=== PATIENT | female | born 1975 | race Caucasian/White ===

== ENCOUNTER 2024-09-21 03:30 | Inpatient (IN) | payer OTHER, MEDICARE ==
[2024-09-21] MEDS: ONDANSETRON 4 MG/2 ML VIAL IVP STA ×3 (04:08→07:48)
[2024-09-21] MEDS: SODIUM CHLORIDE 0.9% 500 ML 500 ML IV STA ×2 (04:11→05:01)
[2024-09-21] MEDS: KETOROLAC 15 MG/ML 1 ML VIAL IVP STA (04:14)
[2024-09-21 04:34] LABS: Basophils # (A) 0.08 10*3/uL (0.00-0.10); Basophils % (A) 0.3 %; Eosinophils # (A) 0.02 10*3/uL (0.04-0.35); Eosinophils % (A) 0.1 %; HCT 41.9 % (37.2-46.3); HGB 14.8 g/dL (12.0-15.0); Lymphocytes # (A) 4.28 10*3/uL (0.90-5.00); MCH 32.4 pg (27.0-32.0); MCHC 35.3 g/dL (32.0-37.0); MCV 91.7 fL (80.0-97.0); Mean Platelet Volume 9.3 fL (9.5-12.2); Monocytes % (A) 3.9 %; Neutrophils # (A) 24.67 10*3/uL (1.80-7.70); Neutrophils % (A) 80.3 %; Platelet Count 518 10*3/uL (140-440); RBC 4.57 10*6/uL (4.10-5.20); RDW 13.1 % (11.5-14.5); WBC 30.67 10*3/uL (4.50-10.00)
[2024-09-21 04:48] LABS: AST 43 U/L (14-36); African American GFR (CKD) >90 (>60 ml/min/1.73 sqM); Alkaline Phosphatase 103 U/L (38-126); Amylase 125 U/L (30-110); Anion Gap 21 mmol/L; Blood Urea Nitrogen 11 mg/dL (7-17); Calcium 10.5 mg/dL (8.4-10.2); Carbon Dioxide 17 mmol/L (22-30); Chloride 100 mmol/L (98-107); Glucose 206 mg/dL (74-99); Lipase 616 U/L (23-300); Non-African American GFR(CKD) >90 (>60 ml/min/1.73 sqM); Potassium 3.9 mmol/L (3.5-5.1); Sodium 138 mmol/L (137-145); Total Bilirubin 1.2 mg/dL (0.2-1.3); Total Protein 8.3 g/dL (6.3-8.2)
[2024-09-21 04:55] LABS: ALT 61 U/L (4-34)
--- NOTE | 2024-09-21 07:17 | ED ---
Nausea/Vomiting/Diarrhea HPI - General Chief complaint: Nausea/Vomiting/Diarrhea Stated complaint: Vomiting Time Seen by Provider: 09/21/24 03:57 Source: patient, EMS Mode of arrival: EMS Limitations: no limitations - History of Present Illness Initial comments: This patient is a 49-year-old woman presenting with complaint of multiple episodes of vomiting, diarrhea, abdominal cramping. Symptoms had started over the course of last night and become severe. The patient does have underlying history of POTS syndrome, autonomic dysregulation, lupus, her care is usually provided by [facility]. She does have history of GE J-tube, and takes lactated ringer solution 1 L 3 times weekly to prevent dehydration. The patient's had had similar symptoms over the weekend, and then she developed symptoms last night. She states she has had over 30 episodes of vomiting, no hematemesis or coffee-ground material. Does have some diffuse in termittent, abdominal cramping. She has felt hot and cold and has had some diaphoresis. MD complaint: nausea, vomiting, diarrhea, abdominal pain -: hour(s) Description of Vomiting: bilious Description of Diarrhea: water Associated Abdominal Pain: Yes Location: diffuse Severity: mild Quality: cramping Consistency: intermittent Improves with: none Worsens with: none Context: sick contacts Associated Symptoms: diaphoresis, fever/chills, nausea/vomiting - Related Data Home Medications Medication Instructions Recorded Confirmed Albuterol Sulfate [Albuterol 2 puff INHALATION RT-Q6H PRN 09/21/24 09/21/24 Sulfate Hfa] Aspirin EC [Ecotrin Low Dose] 81 mg PO DAILY 09/21/24 09/21/24 Cromolyn Sodium [Cromolyn Sodium 100 mg PO TID 09/21/24 09/21/24 20% Oral Soln] Cyclobenzaprine [Flexeril] 5 mg PO BID PRN 09/21/24 09/21/24 Dicyclomine [Bentyl] 10 mg PO TID PRN 09/21/24 09/21/24 Escitalopram Oxalate [Lexapro Soln] 5 mg PO HS 09/21/24 09/21/24 Famotidine [Pepcid] 40 mg PO DAILY 09/21/24 09/21/24 Fexofenadine HCl [Little Allergy] 180 mg PO DAILY 09/21/24 09/21/24 Fludrocortisone [Florinef] 0.1 mg PO DAILY 09/21/24 09/21/24 Lubiprostone [Amitiza] 8 mcg PO DAILY 09/21/24 09/21/24 Midodrine [ProAmatine] 5 mg PO TID PRN 09/21/24 09/21/24 Promethazine 6.25MG/5Ml [Phenergan 12.5 mg PO TID PRN 09/21/24 09/21/24 Syrup] Propranolol [Inderal] 10 mg PO HS 09/21/24 09/21/24 Prucalopride Succinate [Motegrity] 2 mg PO DAILY 09/21/24 09/21/24 Rimegepant Sulfate [Nurtec Odt] 75 mg PO DAILY PRN 09/21/24 09/21/24 Previous Rx's Medication Instructions Recorded Acetaminophen Tab [Tylenol Tab] 650 mg PO Q4H PRN #30 tablet 09/24/24 Levofloxacin [Levaquin] 500 mg PO DAILY 3 Days #3 tab 09/24/24 Allergies Allergy/AdvReac Type Severity Reaction Status Date / Time cefotaxime [From Claforan] Allergy Unknown Verified 09/21/24 03:41 hydrocodone Allergy Unknown Verified 09/21/24 03:41 loracarbef [From Lorabid] Allergy Rash/Hives Verified 09/21/24 15:52 Penicillins Allergy Unknown Verified 09/21/24 03:41 tramadol [From Ultram] Allergy Rash/Hives Verified 09/21/24 15:52 trazodone [From Desyrel] Allergy Unknown Verified 09/21/24 03:41 Review of Systems ROS Statement: Those systems with pertinent positive or pertinent negative responses have been documented in the HPI. ROS Other: All systems not noted in ROS Statement are negative. Constitutional: Reports: chills, weakness Respiratory: Denies: cough, dyspnea Cardiovascular: Denies: chest pain, palpitations, edema, syncope Gastrointestinal: Reports: abdominal pain, nausea, vomiting, diarrhea. Denies: hematemesis, melena, hematochezia Genitourinary: Denies: dysuria, hematuria Musculoskeletal: Denies: back pain Skin: Denies: rash Neurological: Denies: headache, weakness Past Medical History Additional Past Medical History / Comment(s): POTS, temperature regulating disorder General Exam Limitations: no limitations General appearance: alert, in no apparent distress Head exam: Present: atraumatic, normocephalic Eye exam: Present: normal appearance. Absent: scleral icterus, conjunctival injection ENT exam: Present: normal oropharynx Neck exam: Present: normal inspection Respiratory exam: Absent: respiratory distress, wheezes, rales, rhonchi, stridor, accessory muscle use Cardiovascular Exam: Present: regular rate, normal rhythm, normal heart sounds. Absent: systolic murmur, diastolic murmur, rubs, gallop GI/Abdominal exam: Present: soft. Absent: distended, tenderness, guarding, rebound, rigid, mass Extremities exam: Present: normal inspection, normal capillary refill. Absent: pedal edema, calf tenderness Back exam: Present: normal inspection. Absent: CVA tenderness (R), CVA tenderness (L) Neurological exam: Present: alert Skin exam: Present: warm, dry, intact, normal color. Absent: rash Course Vital Signs 09/21/24 09/21/24 09/21/24 03:34 06:00 06:39 Temperature 98.6 F Pulse Rate 88 89 Respiratory 18 18 Rate Blood Pressure 129/98 121/78 O2 Sat by Pulse 99 97 Oximetry 09/21/24 09/21/24 09/21/24 07:22 14:33 18:28 Temperature Pulse Rate 97 128 H 121 H Respiratory 18 18 18 Rate Blood Pressure 127/77 137/83 111/73 O2 Sat by Pulse 97 96 97 Oximetry 09/21/24 09/21/24 09/21/24 19:30 21:02 22:42 Temperature 99.4 F 99.2 F Pulse Rate 122 H 102 H 96 Respiratory 18 18 18 Rate Blood Pressure 115/75 115/75 120/80 O2 Sat by Pulse 96 95 96 Oximetry 09/22/24 00:07 Temperature 100.0 F H Pulse Rate 89 Respiratory 18 Rate Blood Pressure 120/79 O2 Sat by Pulse 95 Oximetry Medical Decision Making - Medical Decision Making The patient had CT scan of the abdomen and pelvis that I interpreted as being negative for free air, obstruction, or acute surgical condition. There is a large gallstone in the gallbladder. Was pt. sent in by a medical professional or institution (, PA, COLLISION TECHNICIAN, urgent care, hospital, or shelter...) When possible be specific @ -[No] Did you speak to anyone other than the patient for history (EMS, parent, family, police, friend...)? What history was obtained from this source @ -[Patient's contributed to history Did you review nursing and triage notes (agree or disagree)? Why? @ -[I reviewed and agree with nursing and triage notes] Were old charts reviewed (outside hosp., previous admission, EMS record, old EKG, old radiological studies, urgent care reports/EKG's, shelter records)? Report findings @ -[No old charts were reviewed] Differential Diagnosis (chest pain, altered mental status, abdominal pain women, abdominal pain men, vaginal bleeding, weakness, fever, dyspnea, syncope, headache, dizziness, GI bleed, back pain, seizure, CVA, palpatations, mental health, musculoskeletal)? @ -[Differential Abdominal Pain Women: Appendicitis, Cholecystitis, diverticulosis, ischemic bowel, pancreatitis, hepatitis, UTI, gastroenteritis, AAA, incarcerated hernia, bowel obstruction, constipation, inflammatory bowel, hepatitis, peptic ulcer disease, splenic infarction, perforated viscus, vulvitis, ovarian torsion, PID, kidney stone, placenta abruption, this is not meant to be an all-inclusive list EKG interpreted by me (3pts min.). @ -[As above] X-rays interpreted by me (1pt min.). @ -[None done] CT interpreted by me (1pt min.). @ -[I interpreted as above U/S interpreted by me (1pt. min.). @ -[None done] What testing was considered but not performed or refused? (CT, X-rays, U/S, labs)? Why? @ -[None] What meds were considered but not given or refused? Why? @ -[None] Did you discuss the management of the patient with other professionals (professionals i.e. ., PA, COLLISION TECHNICIAN, lab, RT, psych nurse, social science teacher, supervisory cbp officer, teacher, corporate ethics officer, showcase trimmer)? Give summary @ -[No] Was smoking cessation discussed for >3mins.? @ -[No] Was critical care preformed (if so, how long)? @ -[No] Were there social determinants of health that impacted care today? How? (Homelessness, low income, unemployed, alcoholism, drug addiction, transportation, low edu. Level, literacy, decrease access to med. care, alf, rehab)? @ -[No] Was there de-escalation of care discussed even if they declined (Discuss DNR or withdrawal of care, Hospice)? DNR status @ -[No] What co-morbidities impacted this encounter? (DM, HTN, Smoking, COPD, CAD, Cancer, CVA, ARF, Chemo, Hep., AIDS, mental health diagnosis, sleep apnea, morbid obesity)? @ -[Sjogren syndrome, Javid-Danlos, lupus, long COVID Was patient admitted / discharged? Hospital course, mention meds given and route, prescriptions, significant lab abnormalities, going to OR and other pertinent info. @ -[Patient is 49-year-old woman with multiple medical conditions who is having nausea vomiting some abdominal pain and not tolerating oral intake. The patient will be admitted for further symptom control and also to have surgical consultation. Undiagnosed new problem with uncertain prognosis? @ -[No] Drug Therapy requiring intensive monitoring for toxicity (Heparin, Nitro, Insulin, Cardizem)? @ -[No] Were any procedures done? @ -[No] Diagnosis/symptom? @ -[Intractable nausea and vomiting Acute abdominal pain Acute, or Chronic, or Acute on Chronic? @ -[Acute Uncomplicated (without systemic symptoms) or Complicated (systemic symptoms)? @ -[Uncomplicated Side effects of treatment? @ -[No] Exacerbation, Progression, or Severe Exacerbation? @ -[No] Poses a threat to life or bodily function? How? (Chest pain, USA, PR, pneumonia, PE, COPD, DKA, ARF, appy, cholecystitis, CVA, Diverticulitis, Homicidal, Suicidal, threat to staff... and all critical care pts) @ -[Given the patient's underlying medical condition there is risk of dehydration/organ failure with her protracted vomiting and inability to take fluids All treatments are based on ideal body weight as in ED triage - Lab Data Result diagrams: 09/24/24 05:35 09/24/24 05:35 Lab Results 09/21/24 09/21/24 Range/Units 04:28 04:28 WBC 30.67 H (4.50-10.00) 10*3/uL RBC 4.57 (4.10-5.20) 10*6/uL Hgb 14.8 (12.0-15.0) g/dL Hct 41.9 (37.2-46.3) % MCV 91.7 (80.0-97.0) fL MCH 32.4 H (27.0-32.0) pg MCHC 35.3 (32.0-37.0) g/dL Plt Count 518 H (140-440) 10*3/uL MPV 9.3 L (9.5-12.2) fL Immature Gran % (Auto) 1.4 % Neutrophils % 80.3 % Lymphocytes % 14.0 % Monocytes % 3.9 % Eosinophils % 0.1 % Basophils % 0.3 % Immature Gran # 0.42 H (0.00-0.04) 10*3/uL Neutrophils # 24.67 H (1.80-7.70) 10*3/uL Lymphocytes # 4.28 (0.90-5.00) 10*3/uL Monocytes # 1.20 H (0.20-1.00) 10*3/uL Eosinophils # 0.02 L (0.04-0.35) 10*3/uL Basophils # 0.08 (0.00-0.10) 10*3/uL Sodium 138 (137-145) mmol/L Potassium 3.9 (3.5-5.1) mmol/L Chloride 100 (98-107) mmol/L Carbon Dioxide 17 L (22-30) mmol/L Anion Gap 21 mmol/L BUN 11 (7-17) mg/dL Creatinine 0.54 (0.52-1.04) mg/dL Est GFR (CKD-EPI)AfAm >90 (>60 ml/min/1.73 sqM) Est GFR (CKD-EPI)NonAf >90 (>60 ml/min/1.73 sqM) Glucose 206 H (74-99) mg/dL Calcium 10.5 H (8.4-10.2) mg/dL Total Bilirubin 1.2 (0.2-1.3) mg/dL AST 43 H (14-36) U/L ALT 61 H (4-34) U/L Alkaline Phosphatase 103 (38-126) U/L Total Protein 8.3 H (6.3-8.2) g/dL Albumin 5.0 (3.5-5.0) g/dL Amylase 125 H (30-110) U/L Lipase 616 H (23-300) U/L Disposition Clinical Impression: Gastroenteritis, Intractable nausea and vomiting, Abdominal pain Disposition: ADMITTED IP TO THIS HOSP Condition: Stable Is patient prescribed a controlled substance at d/c from ED?: No
--- NOTE | 2024-09-21 08:37 | CT ---
EXAMINATION TYPE: CT abdomen pelvis w con DATE OF EXAM: 09/21/2024 8:13 AM COMPARISON: None. CLINICAL INDICATION: Female, 49 years old with history of abdominal pain; nausea/vomiting TECHNIQUE: Axial CT abdomen pelvis w con;Sagittal and coronal reformats were created on a separate w orkstation. Contrast used:100 mL of Isovue 300 with IV Contrast, (none if empty) Oral contrast used: without Oral Contrast (none if empty) CT DLP: 1127.6 mGycm, Automated exposure control for dose reduction was used. FINDINGS: LOWER CHEST: Unremarkable ABDOMEN LIVER: Unremarkable GALLBLADDER AND BILE DUCTS: 8 mm gallstone. No abnormal gallbladder distention. No biliary ductal dil atation. PANCREAS: Unremarkable. SPLEEN: Surgically absent with surgical clips within the left upper quadrant. ADRENAL GLANDS: Unremarkable. KIDNEYS AND URETERS: No evidence of hydronephrosis or renal calculus. The ureters are unremarkable. PELVIS BLADDER: No evidence for wall thickening or mass given limitations of exam. REPRODUCTIVE: Uterus anteverted. An IUD appears appropriately positioned. There is a 2.7 cm enhancing rounded mass in the posterior uterine body myometrium suggesting a focal fibroid. Multiple pelvic ph leboliths. Ovaries not well delineated. Soft tissue fullness in the region of the cervix, refer to ax ial image 85 may be normal physiologic change. ABDOMEN & PELVIS STOMACH AND BOWEL: There appear to be 2 gastric tubes present coursing down the esophagus, one with t ip just below the GE junction and one with tip within the fundus of the stomach. A PEG tube is also p resent.Prominent liquid stool within the right side of the colon. Additional prominent fluid-filled s mall bowel loops in the left side of the abdomen and within the ileum. Possible mild ileal wall thick ening and mucosal hyperemia. No evidence of bowel obstruction. Normal appendix. PERITONEUM/RETROPERITONEUM: No evidence of pneumoperitoneum or free fluid. VASCULATURE: No evidence of aortic aneurysm. MUSCULOSKELETAL: No acute osseous abnormalities LYMPH NODES: A couple prominent matthew hepatic lymph nodes measuring up to 1 cm probably reactive. No further evidence for mesenteric or retroperitoneal adenopathy. No pelvic adenopathy seen. SOFT TISSUE/ABDOMINAL WALL: Unremarkable IMPRESSION: 1. Prominent liquid stool in the right side of the colon as well as fluid-filled small bowel loops i n the left side of the abdomen and in the ileum. Consider a nonspecific enteritis or enterocolitis. 2. We note a PEG tube in place. There also appear to be 2 NG tubes one with tip just below the GE ashia ction and one with tip in the gastric fundus. Clinically correlate. 3. 8 mm gallstone. 4. IUD present. Soft tissue fullness in the region of the cervix may be physiologic change. Correlate with findings on routine Pap smear to exclude any underlying lesion. [facility], Workstation: MJ, 09/21/2024 8:35 AM
[2024-09-21] MEDS ORDERED: NALOXONE 0.4 MG/ML 1 ML VIAL IV PRN (08:41)
[2024-09-21] MEDS: SODIUM CHLORIDE 0.9% 1,000 ML IV SCH (08:56)
[2024-09-21] MEDS ORDERED: MIDODRINE 5 MG TAB PO PRN (13:02)
[2024-09-21] MEDS ORDERED: DICYCLOMINE 10 MG CAP PO PRN (13:02)
[2024-09-21] MEDS ORDERED: PATIENT'S OWN (Rimegepant Sulfate [Nurtec Odt] 75 MG Tablet) PO PRN (13:02)
[2024-09-21] MEDS ORDERED: CYCLOBENZAPRINE 5 MG TAB PO PRN (13:02)
[2024-09-21] MEDS ORDERED: ALBUTEROL NEBULIZED 2.5 MG/3 ML INHALATION PRN (13:02)
[2024-09-21] MEDS ORDERED: traMADol 50 MG TAB PO PRN (13:08)
[2024-09-21] MEDS: FAMOTIDINE 20 MG TAB PO SCH (13:42)
[2024-09-21] MEDS: TRIMETHOBENZAMIDE 100 MG/ML 2 ML VIAL IM STA (13:42)
[2024-09-21] MEDS: PRUCALOPRIDE SUCCINATE 1 MG PO SCH (13:43)
[2024-09-21] MEDS: PANTOPRAZOLE 40 MG/10 ML VIAL IVP SCH (13:43)
[2024-09-21] MEDS: LUBIPROSTONE 8 MCG PO SCH (13:43)
[2024-09-21] MEDS: LORATADINE 10 MG TAB PO SCH (13:43)
[2024-09-21] MEDS: FLUDROCORTISONE 0.1 MG TAB PO SCH (13:43)
[2024-09-21] MEDS: HYDROmorphone 0.5 MG/0.5 ML SYRINGE IVP PRN (14:28)
--- NOTE | 2024-09-21 14:49 | US ---
EXAMINATION TYPE: US gallbladder DATE OF EXAM: 09/21/2024 COMPARISON: CT 2024 CLINICAL INDICATION: Female, 49 years old with history of abd pain, gallstones?; TECHNIQUE: Grayscale and color Doppler imaging of the right upper quadrant was performed. FINDINGS: EXAM MEASUREMENTS: Liver Length: 17.6 cm Gallbladder Wall: 0.2 cm CBD: 0.5 cm Right Kidney: 11.3 x 4.2 x 4.7 cm Pancreas: Some of the pancreatic tail is obscured by bowel gas shadowing. Visualized portions show n o gross abnormality. Liver: measures in upper limits of normal. Increased echogenicity. No focal lesion seen. Gallbladder: wnl Evidence for sonographic Powell's sign: yes CBD: visualized portions wnl, limited by overlying bowel gas Right Kidney: wnl IMPRESSION: 1. Borderline hepatomegaly at 17.6 cm with mild to moderate hepatic steatosis. Correlate with LFTs, l ipid profile, and patient risk factors. 2. No gallstones or biliary ductal dilatation. No ancillary imaging findings of acute cholecystitis. 3. However, sonographic Powell sign is reported positive. This may reflect referred pain such as from the liver. If further imaging assessment of the gallbladder is desired, HIDA scan can be considered. [facility], , 09/21/2024 2:47 PM
--- NOTE | 2024-09-21 15:40 | P.HPIM ---
History of Present Illness H&P Date: 09/21/24 This is a pleasant 49-year-old female who presented to the emergency department with severe abdominal pain with nausea and vomiting. Patient also noted to be have significant diarrhea and symptoms became more intense and severe this morning with cramping and reports her had similar symptoms over the weekend which has subsided. Patient follows with [facility] outpatient out of [facility] with an extensive past medical history of POTS syndrome, temperature regulating disorder, ITP, lupus, Sjogren's, Javid-Danlos syndrome, [place] ES, gastroparesis, long-haul COVID with autoimmune gastric dysmotility, PCOS, basal cell carcinoma with history of splenectomy, GJ tube and multiple ports. Patient is never a smoker denies any drinking or illicit drug use and also has history of anxiety/depression/PTSD. On admission labs this morning labs revealed a white count of 30.67, hemoglobin 14.8, platelets 518, sodium 138, potassium 3.9, BUN 11, creatinine 0.54, random glucose was 206, calcium elevated at 10.5, total bili is 1.2, AST 43, ALT 61, amylase 125, lipase 616. Patient did undergo CT abdomen pelvis which revealed prominent liquid stool in the right side of the colon as well as fluid-filled small bowel loops in the left side of the abdomen and the ileum to consider a nonspecific enteritis or enterocolitis, PEG tube was noted as well as J-tube, 8 mm gallstone, also noted to have an IUD present and there is some soft tissue fullness in the region of the cervix that may be physiologic to correlate with findings of a routine Pap smear. Patient reports she receives lactated Ringer's 3 times weekly to prevent dehydration along with electrolytes. Patient also is on specific tube feeds which most recently over the last few days she has not been tolerating very well and not been having her tube feeds. Patient is currently on Vivinex and will be bringing in her tube feed supplies as we do not carry these. Will consult dietitian. Will also obtain a gallbladder ultrasound with concerns of that gallstone. Will obtain blood cultures and also place the patient on empiric antibiotics given the white count was 30,000 and placed a consult to general surgery. REVIEW OF SYSTEMS: CONSTITUTIONAL: Patient reports of fever, no malaise, reports of fatigue. HEENT: No recent visual problems or hearing problems. Denied any sore throat. CARDIOVASCULAR: No chest pain, orthopnea, PND, no palpitations, no syncope. PULMONARY: No shortness of breath, no cough, no hemoptysis. GASTROINTESTINAL: Reports multiple episodes of diarrhea, reports nausea, reports multiple episodes of vomiting, reports severe abdominal pain and cramping. NEUROLOGICAL: No headaches, no weakness, no numbness. HEMATOLOGICAL: Denies any bleeding or petechiae. GENITOURINARY: Denies any burning micturition, frequency, or urgency. MUSCULOSKELETAL/RHEUMATOLOGICAL: Denies any joint pain, swelling, or any muscle pain. ENDOCRINE: Denies any polyuria or polydipsia. The rest of the 14-point review of systems is negative. PHYSICAL EXAMINATION: GENERAL: The patient is alert and oriented x3, in acute distress due to significant nausea and pain of the abdomen. Well developed, well nourished. HEENT: Pupils are round and equally reacting to light. EOMI. No scleral icterus. No conjunctival pallor. Normocephalic, atraumatic. No pharyngeal erythema. No thyromegaly. CARDIOVASCULAR: S1 and S2 muffled, tachycardic PULMONARY: Chest is clear to auscultation, no wheezing or crackles. ABDOMEN: Soft, tenderness noted of left and right along with mid epigastric, nondistended, normoactive bowel sounds. No palpable organomegaly. MUSCULOSKELETAL: No joint swelling or deformity. EXTREMITIES: No cyanosis, clubbing, or pedal edema. NEUROLOGICAL: Gross neurological examination did not reveal any focal deficits. SKIN: No rashes. Assessment: Abdominal pain with nausea, vomiting, diarrhea with concerns of enteritis or enterocolitis Leukocytosis, possibly reactive although patient was having fevers and will initiate empiric antibiotics, follow-up on repeat labs Elevated amylase/lipase with concerns of acute pancreatitis Mild transaminitis Thrombocythemia History of Sjogren's disease History of POTS ITP history Lupus History of Sjogren's Javid-Danlos syndrome PRES History of gastroparesis and follows with [facility] outpatient Long-haul COVID history Autoimmune gastric dysmotility PCOS Basal cell carcinoma history History of anxiety, depression, PTSD History of temperature regulating disorder GI prophylaxis DVT prophylaxis Full code Plan: Patient was admitted with concerns of nausea, vomiting, diarrhea and significant dehydration. Patient chronically has lactated ringer infusions 3 times weekly and follows at the [facility] for significant gastroparesis along with multiple significant other comorbidities CT abdomen as mentioned above and there was concern for an 8 mm gallstone and will obtain a gallbladder ultrasound and also consult general surgery and appreciate input and recommendations Patient did have an elevated white count and reports to having fevers of which patient reports she also has a temperature regulating abnormality and low-grade temps are fevers for her Patient does follow with the [facility] and will attempt to obtain medical records Await and appreciate input and recommendations from general surgery as we have no GI services available this week and may ultimately need to be transferred for tertiary care. Will empirically start antibiotics, obtain cultures, repeat labs in the a.m. and continue with supportive care Recommend n.p.o. with occasional ice chips very sparingly and patient verbalized understanding We will continue with IV hydration at 125 mL/h and will follow-up on repeat labs. The impression and plan of care has been dictated as a scribe by Kaylan Christie, Nurse Practitioner as directed. Dr. Otilio MD I have performed a history and examination and MDM of this patient, discussed the same with the dictator, and agree with the dictator's assessment and plan as written ,documented as a scribe. Based on total visit time, I have performed more than 50% of the visit. Past Medical History Past Medical History: Cancer Additional Past Medical History / Comment(s): POTS, temperature regulating disorder, ITP, Lisa, Sjogrens, Ehlersdanlos Syndrome, PRES, Gastroparesis, long -haul covid, autoimmune gastricdysmotility, PCOS, basal cell carcinoma, kidney and liver spots, History of Any Multi-Drug Resistant Organisms: None Reported Additional Past Surgical History / Comment(s): Spleenectomy, G-J tube, multiple port implants, large nevus right flank, uterine fibroidectomy, Past Psychological History: Anxiety, Depression, PTSD Smoking Status: Never smoker Past Alcohol Use History: None Reported Past Drug Use History: None Reported Medications and Allergies Home Medications Medication Instructions Recorded Confirmed Type Albuterol Sulfate [Albuterol 2 puff INHALATION RT-Q6H PRN 09/21/24 09/21/24 History Sulfate Hfa] Aspirin EC [Ecotrin Low Dose] 81 mg PO DAILY 09/21/24 09/21/24 History Cromolyn Sodium [Cromolyn Sodium 100 mg PO TID 09/21/24 09/21/24 History 20% Oral Soln] Cyclobenzaprine [Flexeril] 5 mg PO BID PRN 09/21/24 09/21/24 History Dicyclomine [Bentyl] 10 mg PO TID PRN 09/21/24 09/21/24 History Escitalopram Oxalate [Lexapro Soln] 5 mg PO HS 09/21/24 09/21/24 History Famotidine [Pepcid] 40 mg PO DAILY 09/21/24 09/21/24 History Fexofenadine HCl [Little Allergy] 180 mg PO DAILY 09/21/24 09/21/24 History Fludrocortisone [Florinef] 0.1 mg PO DAILY 09/21/24 09/21/24 History Lubiprostone [Amitiza] 8 mcg PO DAILY 09/21/24 09/21/24 History Midodrine [ProAmatine] 5 mg PO TID PRN 09/21/24 09/21/24 History Promethazine 6.25MG/5Ml [Phenergan 12.5 mg PO TID PRN 09/21/24 09/21/24 History Syrup] Propranolol [Inderal] 10 mg PO HS 09/21/24 09/21/24 History Prucalopride Succinate [Motegrity] 2 mg PO DAILY 09/21/24 09/21/24 History Rimegepant Sulfate [Nurtec Odt] 75 mg PO DAILY PRN 09/21/24 09/21/24 History Allergies Allergy/AdvReac Type Severity Reaction Status Date / Time cefotaxime [From Claforan] Allergy Unknown Verified 09/21/24 03:41 hydrocodone Allergy Unknown Verified 09/21/24 03:41 Penicillins Allergy Unknown Verified 09/21/24 03:41 trazodone [From Desyrel] Allergy Unknown Verified 09/21/24 03:41 Physical Exam Vitals: Vital Signs Temp Pulse Resp BP Pulse Ox 09/21/24 14:33 128 H 18 137/83 96 09/21/24 07:22 97 18 127/77 97 09/21/24 06:39 98.6 F 09/21/24 06:00 89 18 121/78 97 09/21/24 03:34 88 18 129/98 99 Intake and Output 09/21/24 09/21/24 09/21/24 06:59 14:59 22:59 Other: Weight 83.915 kg Results CBC & Chem 7: 09/21/24 04:28 09/21/24 04:28 Labs: Abnormal Lab Results - Last 24 Hours (Table) 09/21/24 09/21/24 Range/Units 04:28 04:28 WBC 30.67 H (4.50-10.00) 10*3/uL MCH 32.4 H (27.0-32.0) pg Plt Count 518 H (140-440) 10*3/uL MPV 9.3 L (9.5-12.2) fL Immature Gran # 0.42 H (0.00-0.04) 10*3/uL Neutrophils # 24.67 H (1.80-7.70) 10*3/uL Monocytes # 1.20 H (0.20-1.00) 10*3/uL Eosinophils # 0.02 L (0.04-0.35) 10*3/uL Carbon Dioxide 17 L (22-30) mmol/L Glucose 206 H (74-99) mg/dL Calcium 10.5 H (8.4-10.2) mg/dL AST 43 H (14-36) U/L ALT 61 H (4-34) U/L Total Protein 8.3 H (6.3-8.2) g/dL Amylase 125 H (30-110) U/L Lipase 616 H (23-300) U/L
[2024-09-21] MEDS: PROMETHAZINE HCL 6.25 MG/5 ML SYRUP PO PRN (15:45)
[2024-09-21] MEDS: CROMOLYN SODIUM 20 MG/ML PO SCH (15:47)
[2024-09-21] MEDS: PIPERACILLIN-TAZOBACTAM 3.375 GM in SODIUM CHLORIDE 0.9% 100 ML IVPB SCH (15:51)
[2024-09-21] MEDS: ONDANSETRON 4 MG/2 ML VIAL IVP PRN (20:13)
[2024-09-21] MEDS: PROPRANOLOL 10 MG TAB PO SCH (20:59)
[2024-09-21] MEDS: ESCITALOPRAM 5 MG TAB PO SCH (20:59)
[2024-09-22 08:27] LABS: ALT 43 U/L (8-44); AST 30 U/L (13-35); Albumin 3.6 g/dL (3.8-4.9); Albumin/Globulin Ratio 1.71 Ratio (1.60-3.17); Alkaline Phosphatase 66 U/L (41-126); BUN/Creat Ratio 16.14 Ratio (12.00-20.00); Blood Urea Nitrogen 11.3 mg/dL (9.0-27.0); Chloride 105 mmol/L (96-109); Globulin 2.1 g/dL (1.6-3.3); Glucose 119 mg/dL (70-110); Magnesium 1.6 mg/dL (1.5-2.4); Sodium 139 mmol/L (135-145); Total Bilirubin 0.8 mg/dL (0.3-1.2); Total Protein 5.7 g/dL (6.2-8.2)
[2024-09-22 08:28] LABS: HCT 34.1 % (37.2-46.3); HGB 11.6 g/dL (12.0-15.0); MCV 93.9 FL (80.0-97.0); Mean Platelet Volume 9.6 FL (9.5-12.2); NRBC Per 100 WBC 0 X 10*3/uL (0.00-0.01); Platelet Count 435 X 10*3/uL (140-440); RBC 3.63 X 10*6/uL (4.10-5.20); RDW 13.8 % (11.5-14.5); WBC 9.81 X 10*3/uL (4.50-10.00)
[2024-09-22 08:29] LABS: Basophils # (A) 0.02 X 10*3/uL (0.00-0.10); Basophils % (A) 0.2 %; Eosinophils # (A) 0.01 X 10*3/uL (0.04-0.35); Eosinophils % (A) 0.1 %; Lymphocytes # (A) 2.53 X 10*3/uL (0.90-5.00); Lymphocytes % (A) 25.8 %; Monocytes # (A) 0.94 X 10*3/uL (0.20-1.00); Monocytes % (A) 9.6 %; Neutrophils # (A) 6.24 X 10*3/uL (1.80-7.70); Neutrophils % (A) 63.6 %
[2024-09-22 09:29] LABS: Amylase 38 U/L (23-121); Lipase 13 U/L (14-63)
--- NOTE | 2024-09-22 13:03 | P.GSCN ---
History of Present Illness Consult date: 09/22/24 History of present illness: CHIEF COMPLAINT: Abdominal pain and vomiting HISTORY OF PRESENT ILLNESS: This is a 49-year-old female who presented to the hospital with complaints of nausea and vomiting that started around midnight yesterday. Patient reports multiple episodes of vomiting that were bilious consistency. She also had diarrhea. She complains of epigastric and right upper quadrant abdominal pain that radiates to the back. Patient does have a significant medical history with gastroparesis from long-term COVID and has a GJ tube. Patient had CT scan abdomen pelvis that reported possible enteritis. An 8 mm gallstone. Gallbladder ultrasound reports no evidence of gallstones. Positive Powell sign hepatic steatosis and hepatomegaly. Her past surgical history does include a splenectomy. Patient reports having a prior ultrasound that had reported gallbladder sludge. PAST MEDICAL HISTORY: POTS, temperature regulating disorder, ITP, Lisa, Sjogrens, Ehlersdanlos Syndrome, PRES, Gastroparesis, long-haul covid, autoimmune gastricdysmotility, PCOS, basal cell carcinoma, kidney and liver spots, anxiety, depression, PTSD PAST SURGICAL HISTORY: Spleenectomy, G-J tube, multiple port implants MEDICATIONS: See below ALLERGIES: See below SOCIAL HISTORY: No illicit drug use. REVIEW OF SYSTEMS: CONSTITUTIONAL: Denies fever or chills. HEENT: Denies blurred vision, vision changes, or eye pain. Denies hemoptysis CARDIOVASCULAR: Denies chest pain or pressure. RESPIRATORY: No shortness of breath. GASTROINTESTINAL: See HPI for pertinent findings HEMATOLOGIC: Denies bleeding disorders. GENITOURINARY: Denies any blood in urine or increased urinary frequency. SKIN: Denies pruitis. Denies rash. PHYSICAL EXAM: VITAL SIGNS: Reviewed GENERAL: Well-developed in no acute distress. HEENT: No sclera icterus. Extraocular movements grossly intact. Moist buccal mucosa. Head is atraumatic, normocephalic. No nasal drainage. ABDOMEN: Soft. Nondistended. Tenderness palpation epigastric and right upper quadrant NEUROLOGIC: Alert and oriented. Cranial nerves II through XII grossly intact. LABORATORY DATA: WBC 30.67 down to 9.81 Hgb 11.6 platelets 435 Sodium 139 potassium 4.0 creatinine 0.7 total bilirubin 0.8 AST 43 normalized at 30 ALT 61 down to 43 alk phos 66 Lipase 616 down to 13 Amylase 125 down to 30 IMAGING: CT scan abdomen and pelvis reports prominent liquid stool in the right side of the colon as well as fluid-filled bowel loops on the left side of the abdomen and in the ileum. Consider nonspecific enteritis or enterocolitis. 8 mm gallstone. IUD present. ASSESSMENT: 1. Right upper quadrant and epigastric abdominal pain 2. History of gallbladder sludge 3. Gallstone present on CAT scan but not gallbladder ultrasound PLAN: - Patient scheduled for HIDA scan - Try to obtain prior gallbladder ultrasound results from [facility] - Continue supportive care Physician Autocad Operator note has been reviewed by physician. Signing provider agrees with the documented findings, assessment, and plan of care. Past Medical History Past Medical History: Cancer Additional Past Medical History / Comment(s): POTS, temperature regulating disorder, ITP, Lupus, Sjogrens, Ehlersdanlos Syndrome, PRES, Gastroparesis, long-haul covid, autoimmune gastricdysmotility, PCOS, basal cell carcinoma, Right kidney and liver masses-being monitored, Lymes disease, Neurogenic bladder, small fiber neuropathy, migraine headaches, blind 3 years, sepsis, pertussis, pneumonia, cdiff last 2005, abnormal pap smears History of Any Multi-Drug Resistant Organisms: None Reported Additional Past Surgical History / Comment(s): Spleenectomy, G-J tube 2022, multiple port implants, large nevus right flank-mole removed, uterine fibroidectomy, 2013 bone marrow biopsy Past Psychological History: Anxiety, Depression, PTSD Smoking Status: Never smoker Past Alcohol Use History: None Reported Past Drug Use History: None Reported Medications and Allergies Home Medications Medication Instructions Recorded Confirmed Type Albuterol Sulfate [Albuterol 2 puff INHALATION RT-Q6H PRN 09/21/24 09/21/24 History Sulfate Hfa] Aspirin EC [Ecotrin Low Dose] 81 mg PO DAILY 09/21/24 09/21/24 History Cromolyn Sodium [Cromolyn Sodium 100 mg PO TID 09/21/24 09/21/24 History 20% Oral Soln] Cyclobenzaprine [Flexeril] 5 mg PO BID PRN 09/21/24 09/21/24 History Dicyclomine [Bentyl] 10 mg PO TID PRN 09/21/24 09/21/24 History Escitalopram Oxalate [Lexapro Soln] 5 mg PO HS 09/21/24 09/21/24 History Famotidine [Pepcid] 40 mg PO DAILY 09/21/24 09/21/24 History Fexofenadine HCl [Little Allergy] 180 mg PO DAILY 09/21/24 09/21/24 History Fludrocortisone [Florinef] 0.1 mg PO DAILY 09/21/24 09/21/24 History Lubiprostone [Amitiza] 8 mcg PO DAILY 09/21/24 09/21/24 History Midodrine [ProAmatine] 5 mg PO TID PRN 09/21/24 09/21/24 History Promethazine 6.25MG/5Ml [Phenergan 12.5 mg PO TID PRN 09/21/24 09/21/24 History Syrup] Propranolol [Inderal] 10 mg PO HS 09/21/24 09/21/24 History Prucalopride Succinate [Motegrity] 2 mg PO DAILY 09/21/24 09/21/24 History Rimegepant Sulfate [Nurtec Odt] 75 mg PO DAILY PRN 09/21/24 09/21/24 History Allergies Allergy/AdvReac Type Severity Reaction Status Date / Time cefotaxime [From Claforan] Allergy Unknown Verified 09/21/24 03:41 hydrocodone Allergy Unknown Verified 09/21/24 03:41 loracarbef [From Lorabid] Allergy Rash/Hives Verified 09/21/24 15:52 Penicillins Allergy Unknown Verified 09/21/24 03:41 tramadol [From Ultram] Allergy Rash/Hives Verified 09/21/24 15:52 trazodone [From Desyrel] Allergy Unknown Verified 09/21/24 03:41 Surgical - Exam Vital Signs Pulse Resp BP Pulse Ox 88 18 129/98 99 09/21/24 03:34 09/21/24 03:34 09/21/24 03:34 09/21/24 03:34 Results - Labs 09/22/24 04:41 09/22/24 04:41 Abnormal Lab Results - Last 24 Hours (Table) 09/22/24 09/22/24 09/22/24 Range/Units 04:41 04:41 06:00 RBC 3.63 L (4.10-5.20) X 10*6/uL Hgb 11.6 L (12.0-15.0) g/dL Hct 34.1 L (37.2-46.3) % Immature Gran # 0.07 H (0.00-0.04) X 10*3/uL Eosinophils # 0.01 L (0.04-0.35) X 10*3/uL Glucose 119 H (70-110) mg/dL Calcium 8.0 L (8.7-10.3) mg/dL Total Protein 5.7 L (6.2-8.2) g/dL Albumin 3.6 L (3.8-4.9) g/dL Lipase 13 L (14-63) U/L Diabetes panel 09/22/24 Range/Units 04:41 Sodium 139 (135-145) mmol/L Potassium 4.0 (3.5-5.5) mmol/L Chloride 105 (96-109) mmol/L Carbon Dioxide 23.0 (21.6-31.8) mmol/L BUN 11.3 (9.0-27.0) mg/dL Creatinine 0.7 (0.6-1.5) mg/dL Glucose 119 H (70-110) mg/dL Calcium 8.0 L (8.7-10.3) mg/dL AST 30 (13-35) U/L ALT 43 (8-44) U/L Alkaline Phosphatase 66 (41-126) U/L Total Protein 5.7 L (6.2-8.2) g/dL Albumin 3.6 L (3.8-4.9) g/dL Calcium panel 09/22/24 Range/Units 04:41 Calcium 8.0 L (8.7-10.3) mg/dL Albumin 3.6 L (3.8-4.9) g/dL Pituitary panel 09/22/24 Range/Units 04:41 Sodium 139 (135-145) mmol/L Potassium 4.0 (3.5-5.5) mmol/L Chloride 105 (96-109) mmol/L Carbon Dioxide 23.0 (21.6-31.8) mmol/L BUN 11.3 (9.0-27.0) mg/dL Creatinine 0.7 (0.6-1.5) mg/dL Glucose 119 H (70-110) mg/dL Calcium 8.0 L (8.7-10.3) mg/dL Adrenal panel 09/22/24 Range/Units 04:41 Sodium 139 (135-145) mmol/L Potassium 4.0 (3.5-5.5) mmol/L Chloride 105 (96-109) mmol/L Carbon Dioxide 23.0 (21.6-31.8) mmol/L BUN 11.3 (9.0-27.0) mg/dL Creatinine 0.7 (0.6-1.5) mg/dL Glucose 119 H (70-110) mg/dL Calcium 8.0 L (8.7-10.3) mg/dL Total Bilirubin 0.8 (0.3-1.2) mg/dL AST 30 (13-35) U/L ALT 43 (8-44) U/L Alkaline Phosphatase 66 (41-126) U/L Total Protein 5.7 L (6.2-8.2) g/dL Albumin 3.6 L (3.8-4.9) g/dL
--- NOTE | 2024-09-22 13:39 | NM ---
EXAMINATION TYPE: NM hepatobiliary w CCK DATE OF EXAM: 09/22/2024 COMPARISON: Correlation ultrasound 09/21/2024 CLINICAL INDICATION: Female, 49 years old with history of abdominal pain; TECHNIQUE: After the intravenous administration of 5.38 mCi Tc 99m Mebrofenin hepatobiliary scintigra phy is performed. Immediate images post injection. FINDINGS: There is satisfactory initial accumulation of tracer by the liver. The gallbladder is visualized wit hin 30 minutes. The small bowel activity is not identified either at the two-hour delayed image or a fter CCK administration. At one hour CCK was administered, patient was injected with 1.68 mcg of Kine vac, and gallbladder ejection fraction is calculated at 1 %, abnormal. IMPRESSION: 1. No scintigraphic evidence for acute cholecystitis. 2. Nonvisualization of small bowel, neither after a 2 hour delayed image nor after CCK administration . Correlate with alkaline phosphatase and bilirubin levels to exclude the possibility of bile duct ob struction. However, the bile duct appearance on the patient's 09/21/2024 ultrasound, the not seem to s upport biliary obstruction. 3. The abnormal gallbladder ejection fraction of 1% may be seen with chronic cholecystitis or biliary dyskinesia. [facility], Workstation: MJ, 09/22/2024 1:36 PM
[2024-09-22] MEDS: LACTATED RINGERS 1,000 ML IV SCH (13:51)
[2024-09-22] MEDS: ACETAMINOPHEN TAB 325 MG TAB PO PRN (14:03)
[2024-09-22 15:51] LABS: Appearance,Urine Cloudy (Clear); Bacteria,Urine Occasional /hpf; Bilirubin,Urine Negative (Negative); Blood,Urine Moderate (Negative); Color,Urine Yellow; Glucose,Urine (UA) Negative (Negative); Ketones,Urine 2+ (Negative); Leukocyte Esterase,Urine Negative (Negative); Mucus,Urine Rare /hpf; Nitrite,Urine Negative (Negative); PH, Urine 6.5 (5.0-8.0); Protein,Urine Negative (Negative); RBC,Urine 46 /hpf (0-5); Specific Gravity,Urine 1.019 (1.001-1.035); Squamous Epithelial Cell,Urine 12 /hpf (0-4); Urobilinogen,Urine <2.0 mg/dL (<2.0); WBC,Urine 5 /hpf (0-5)
--- NOTE | 2024-09-22 22:28 | P.PN ---
Subjective Progress Note Date: 09/22/24 This is a pleasant 49-year-old female who presented to the emergency department with severe abdominal pain with nausea and vomiting. Patient also noted to be have significant diarrhea and symptoms became more intense and severe this morning with cramping and reports her had similar symptoms over the weekend which has subsided. Patient follows with Jami Reynolds outpatient out of [facility] with an extensive past medical history of POTS syndrome, temperature regulating disorder, ITP, lupus, Sjogren's, Javid-Danlos syndrome, [place] ES, gastroparesis, long-haul COVID with autoimmune gastric dysmotility, PCOS, basal cell carcinoma with history of splenectomy, GJ tube and multiple ports. Patient is never a smoker denies any drinking or illicit drug use and also has history of anxiety/depression/PTSD. On admission labs this morning labs revealed a white count of 30.67, hemoglobin 14.8, platelets 518, sodium 138, potassium 3.9, BUN 11, creatinine 0.54, random glucose was 206, calcium elevated at 10.5, total bili is 1.2, AST 43, ALT 61, amylase 125, lipase 616. Patient did undergo CT abdomen pelvis which revealed prominent liquid stool in the right side of the colon as well as fluid-filled small bowel loops in the left side of the abdomen and the ileum to consider a nonspecific enteritis or enterocolitis, PEG tube was noted as well as J-tube, 8 mm gallstone, also noted to have an IUD present and there is some soft tissue fullness in the region of the cervix that may be physiologic to correlate with findings of a routine Pap smear. Patient reports she receives lactated Ringer's 3 times weekly to prevent dehydration along with electrolytes. Patient also is on specific tube feeds which most recently over the last few days she has not been tolerating very well and not been having her tube feeds. Patient is currently on Vivinex and will be bringing in her tube feed supplies as we do not carry these. Will consult dietitian. Will also obtain a gallbladder ultrasound with concerns of that gallstone. Will obtain blood cultures and also place the patient on empiric antibiotics given the white count was 30,000 and placed a consult to general surgery. 09/22/2024 Patient is seen and evaluated in follow-up today continuing to report significant amount of abdominal pain and significant tenderness in the pancreatic and right upper quadrant area. Patient has been evaluated by general surgery and has undergone gallbladder ultrasound recommending possible HIDA scan and this was ordered for this a.m. Lipase and amylase significantly improved as well as white count and has normalized. Patient is having low-grade temps of 100 overnight. Patient reports to continuously feeling nauseated as well and will continue supportive care. Recommend continued n.p.o. for now and will be bringing in tube feeding supplies as well as electrolytes. Will transition to lactated Ringer's for continued hydration. Review of systems: Constitutional: No reports of fatigue, reports of fever, or chills Cardiovascular: No reports of chest pain or palpitations Respiratory: No reports of shortness of breath or cough GI: reports of nausea, reports of vomiting, reports episodes of diarrhea although has not had any this morning : No reports of dysuria or retention, reports follow-up order Neurovascular: No reports of weakness or numbness All medications have been reviewed PHYSICAL EXAMINATION: GENERAL: The patient is alert and oriented x3, in acute distress due to significant nausea and pain of the abdomen. Well developed, well nourished. HEENT: Pupils are round and equally reacting to light. EOMI. No scleral icterus. No conjunctival pallor. Normocephalic, atraumatic. No pharyngeal erythema. No thyromegaly. CARDIOVASCULAR: S1 and S2 muffled, tachycardic PULMONARY: Chest is clear to auscultation, no wheezing or crackles. ABDOMEN: Soft, tenderness noted of left and right along with mid epigastric, nondistended, normoactive bowel sounds. No palpable organomegaly. MUSCULOSKELETAL: No joint swelling or deformity. EXTREMITIES: No cyanosis, clubbing, or pedal edema. NEUROLOGICAL: Gross neurological examination did not reveal any focal deficits. SKIN: No rashes. Assessment: Abdominal pain with nausea, vomiting, diarrhea with concerns of enteritis or enterocolitis Leukocytosis, possibly reactive although patient was having fevers and will initiate empiric antibiotics, improved and normalized and white count was 9 today Elevated amylase/lipase with concerns of acute pancreatitis, improving Mild transaminitis Thrombocythemia History of Sjogren's disease History of POTS ITP history Lupus History of Sjogren's Javid-Danlos syndrome PRES History of gastroparesis and follows with [facility] motility specialist Dr. AlSheik Long-haul COVID history Autoimmune gastric dysmotility PCOS Basal cell carcinoma history History of anxiety, depression, PTSD History of temperature regulating disorder GI prophylaxis DVT prophylaxis Full code Plan: Patient was admitted with concerns of nausea, vomiting, diarrhea and significant dehydration. Patient chronically has lactated ringer infusions 3 times weekly and follows at the [facility] as well as [facility] in [place] for significant gastroparesis along with multiple significant other comorbidities CT abdomen as mentioned above and there was concern for an 8 mm gallstone and gallbladder ultrasound obtained noting no acute cholecystitis although recommending HIDA scan. General surgery has evaluated the patient and has ordered HIDA scan for further evaluation. Patient continues had significant intense abdominal discomfort Patient did have an elevated white count and reports to having fevers of which patient reports she also has a temperature regulating abnormality and low-grade temps are fevers for her, white count has normalized today at 9 although patient was having low-grade temps overnight of 100 F Patient does follow with the [facility] and [facility] and will attempt to obtain medical records Await and appreciate input and recommendations from general surgery as we have no GI services available this week and may ultimately need to be transferred for tertiary care. Recommend n.p.o. with occasional ice chips very sparingly and patient verbalized understanding We will continue with IV hydration at 100 mL/h and will transition normal saline to lactated Ringer's. Follow-up on repeat labs. Amylase and lipase have normal ized, white count is normal at 9 today The impression and plan of care has been dictated as a scribe by Kaylan Christie, Nurse Practitioner as directed. Dr. Otilio MD I have performed a history and examination and MDM of this patient, discussed the same with the dictator, and agree with the dictator's assessment and plan as written ,documented as a scribe. Based on total visit time, I have performed more than 50% of the visit. Objective - Vital Signs Vital signs: Vital Signs Temp 98.7 F 09/22/24 07:10 Pulse 91 09/22/24 07:10 Resp 16 09/22/24 08:14 BP 120/80 09/22/24 07:10 Pulse Ox 96 09/22/24 07:10 FiO2 Intake & Output 09/21/24 09/22/24 09/22/24 18:59 06:59 18:59 Weight 83.915 kg Other: Voiding Method Toilet Toilet # Voids 2 - Labs CBC & Chem 7: 09/22/24 04:41 09/22/24 04:41 Labs: Abnormal Lab Results - Last 24 Hours (Table) 09/22/24 09/22/24 Range/Units 04:41 04:41 RBC 3.63 L (4.10-5.20) X 10*6/uL Hgb 11.6 L (12.0-15.0) g/dL Hct 34.1 L (37.2-46.3) % Immature Gran # 0.07 H (0.00-0.04) X 10*3/uL Eosinophils # 0.01 L (0.04-0.35) X 10*3/uL Glucose 119 H (70-110) mg/dL Calcium 8.0 L (8.7-10.3) mg/dL Total Protein 5.7 L (6.2-8.2) g/dL Albumin 3.6 L (3.8-4.9) g/dL
[2024-09-23 03:41] LABS: Glucose,Whole Blood 146 mg/dL (70-110)
[2024-09-23 06:27] LABS: Basophils # (A) 0.03 10*3/uL (0.00-0.10); Basophils % (A) 0.3 %; Eosinophils # (A) 0.02 10*3/uL (0.04-0.35); Eosinophils % (A) 0.2 %; HCT 32.5 % (37.2-46.3); Lymphocytes # (A) 2.97 10*3/uL (0.90-5.00); Lymphocytes % (A) 34.4 %; MCH 31.8 pg (27.0-32.0); MCHC 34.2 g/dL (32.0-37.0); MCV 93.1 fL (80.0-97.0); Mean Platelet Volume 9.5 fL (9.5-12.2); Monocytes # (A) 0.96 10*3/uL (0.20-1.00); Monocytes % (A) 11.1 %; Neutrophils # (A) 4.59 10*3/uL (1.80-7.70); Neutrophils % (A) 53.3 %; Platelet Count 412 10*3/uL (140-440); RBC 3.49 10*6/uL (4.10-5.20); RDW 13.8 % (11.5-14.5); WBC 8.63 10*3/uL (4.50-10.00)
[2024-09-23 06:48] LABS: HGB 11.1 g/dL (12.0-15.0)
[2024-09-23 07:01] LABS: African American GFR (CKD) >90 (>60 ml/min/1.73 sqM); Anion Gap 6 mmol/L; Blood Urea Nitrogen 6 mg/dL (7-17); Calcium 8.2 mg/dL (8.4-10.2); Carbon Dioxide 24 mmol/L (22-30); Chloride 105 mmol/L (98-107); Glucose 106 mg/dL (74-99); Non-African American GFR(CKD) >90 (>60 ml/min/1.73 sqM); Potassium 3.7 mmol/L (3.5-5.1); Sodium 135 mmol/L (137-145)
[2024-09-23] MEDS: PROCHLORPERAZINE INJ 10 MG/2 ML VIAL IVP PRN (13:36)
--- NOTE | 2024-09-23 13:49 | P.PN ---
Subjective Progress Note Date: 09/23/24 SURGICAL PROGRESS NOTE CHIEF COMPLAINT: Chronic cholecystitis HISTORY OF PRESENT ILLNESS: Patient is been up and taking a shower. No new complaints. Afebrile. WBC 8.63 Hgb 11.1 platelets 412 PHYSICAL EXAM: VITAL SIGNS: Reviewed. GENERAL: Well-developed in no acute distress. ABDOMEN: Soft. Nondistended. Epigastric and right upper quadrant tenderness NEUROLOGIC: Alert and oriented. Cranial nerves II through XII grossly intact. ASSESSMENT: 1. Chronic cholecystitis and possible biliary dyskinesia 2. Right upper quadrant and epigastric abdominal pain PLAN: - Patient scheduled for laparoscopic cholecystectomy today with Dr. Jernigan Physician Chief Librarian Extension Department note has been reviewed by physician. Signing provider agrees with the documented findings, assessment, and plan of care. Objective - Vital Signs Vital signs: Vital Signs Temp 98.8 F 09/23/24 07:20 Pulse 89 09/23/24 07:20 Resp 16 09/23/24 07:20 BP 142/81 09/23/24 07:20 Pulse Ox 97 09/23/24 07:20 FiO2 Intake & Output 09/22/24 09/23/24 09/23/24 18:59 06:59 18:59 Intake Total 316 Balance 316 Weight 83.915 kg 93 kg Intake: Tube Feeding 316 Other: Voiding Method Toilet Toilet # Voids 2 - Labs CBC & Chem 7: 09/23/24 05:53 09/23/24 05:53 Labs: Abnormal Lab Results - Last 24 Hours (Table) 09/22/24 09/23/24 09/23/24 Range/Units 15:28 03:39 05:53 RBC 3.49 L (4.10-5.20) 10*6/uL Hgb 11.1 L D (12.0-15.0) g/dL Hct 32.5 L (37.2-46.3) % Immature Gran # 0.06 H (0.00-0.04) 10*3/uL Eosinophils # 0.02 L (0.04-0.35) 10*3/uL Sodium (137-145) mmol/L BUN (7-17) mg/dL Creatinine (0.52-1.04) mg/dL Glucose (74-99) mg/dL POC Glucose (mg/dL) 146 H (70-110) mg/dL Calcium (8.4-10.2) mg/dL Urine Appearance Cloudy H (Clear) Urine Ketones 2+ H (Negative) Urine Blood Moderate H (Negative) Urine RBC 46 H (0-5) /hpf Ur Squamous Epith Cells 12 H (0-4) /hpf Urine Bacteria Occasional H (None) /hpf Urine Mucus Rare H (None) /hpf 09/23/24 Range/Units 05:53 RBC (4.10-5.20) 10*6/uL Hgb (12.0-15.0) g/dL Hct (37.2-46.3) % Immature Gran # (0.00-0.04) 10*3/uL Eosinophils # (0.04-0.35) 10*3/uL Sodium 135 L (137-145) mmol/L BUN 6 L (7-17) mg/dL Creatinine 0.45 L (0.52-1.04) mg/dL Glucose 106 H (74-99) mg/dL POC Glucose (mg/dL) (70-110) mg/dL Calcium 8.2 L (8.4-10.2) mg/dL Urine Appearance (Clear) Urine Ketones (Negative) Urine Blood (Negative) Urine RBC (0-5) /hpf Ur Squamous Epith Cells (0-4) /hpf Urine Bacteria (None) /hpf Urine Mucus (None) /hpf Microbiology - Last 24 Hours (Table) 09/21/24 14:57 Blood Culture - Preliminary Blood
[2024-09-23] MEDS ORDERED: ROCURONIUM 10 MG/ML (5 ML VIAL) IV ONE (18:30)
[2024-09-23] MEDS ORDERED: KETOROLAC 15 MG/ML 1 ML VIAL ONE (18:30)
[2024-09-23] MEDS ORDERED: HYDROmorphone (PF) 1 MG/ML ONE (18:30)
[2024-09-23] MEDS ORDERED: fentaNYL (PF) 50 MCG/ML 2 ML AMP ONE (18:30)
[2024-09-23] MEDS ORDERED: LIDOCAINE 1% INJ 10MG/ML (20 ML MDV) ONE (18:30)
[2024-09-23] MEDS ORDERED: PROPOFOL 10 MG/ML 20 ML VIAL IV ONE (18:30)
[2024-09-23] MEDS ORDERED: SUCCINYLCHOLINE CHLORIDE 200 MG/10 ML VIAL IV ONE (18:30)
[2024-09-23] MEDS ORDERED: MIDAZOLAM 2 MG/2 ML VIAL ONE (18:30)
[2024-09-23] MEDS ORDERED: PHENYLEPHRINE 10 MG/ML VIAL ONE (18:30)
[2024-09-23] MEDS: LACTATED RINGERS 1,000 ML IV ONE ×2 (18:32→20:11)
[2024-09-23] MEDS: SODIUM CHLORIDE 0.9% 100 ML with ceFAZolin 2,000 MG IV ONE (18:56)
[2024-09-23] MEDS: LIDOCAINE 1%-EPI 1:100,000 20 ML VIAL SQ ONE (18:56)
--- NOTE | 2024-09-23 19:30 | P.OP ---
Date of Procedure: 09/23/24 Preoperative Diagnosis: Cholecystitis Postoperative Diagnosis: Cholecystitis Procedure(s) Performed: Laparoscopic cholecystectomy Anesthesia: CHARLETTE Surgeon: Vipin Jernigan Estimated Blood Loss (ml): 15 Pathology: other (Gallbladder) Condition: stable Disposition: PACU Description of Procedure: The patient was placed on the operating table. The patient received a general endotracheal tube anesthesia. The patients abdomen was prepped and draped in the usual sterile fashion. Through an infraumbilical stab incision, the fascia of the anterior abdominal wall was grasped with a pair of Kochers and then the Veress needle was placed in the peritoneal cavity. Position of the Veress needle was confirmed with positive drop test. The abdomen was then insufflated. After adequate insufflation, the 10 mm trocar was placed in the peritoneal cavity. Following this the laparoscope was placed in the peritoneal cavity. The patient was placed in the head-up, right side up position and then a 5 mm trocar was placed in the right lateral and right subcostal position under direct visualization. A 8 mm trocar was placed in the epigastric position. Patient's PEG tube had been positioned on the left side of the abdomen. The gallbladder was grasped in the fundus and infundibulum. Traction on the gallbladder was placed in the lateral and the cephalad positions. The triangle of Calot was visualized.. The cystic duct was bluntly dissected until the union of the cystic duct and common bile duct was seen. A critical view of safety was achieved. The cystic duct was then divided and sealed with the Harmonic scissors. A PDS Endoloop was then placed throughout the cystic duct stump. The cystic artery divided and sealed with the Harmonic scissors. The gallbladder was then removed from the liver bed using Harmonic scissors. The gallbladder was then extracted through the epigastric port site. Operative field was checked for any bleeding spots and Harmonic scissors was used to coagulate the liver bed. The abdomen was irrigated. The trocars were removed. The skin was closed using interrupted 3-0 Vicryl suture. Dermabond dressing were applied. The patient tolerated the procedure well.
--- NOTE | 2024-09-23 19:48 | P.PN ---
Subjective Progress Note Date: 09/23/24 This is a pleasant 49-year-old female who presented to the emergency department with severe abdominal pain with nausea and vomiting. Patient also noted to be have significant diarrhea and symptoms became more intense and severe this morning with cramping and reports her had similar symptoms over the weekend which has subsided. Patient follows with Jami Reynolds outpatient out of [facility] with an extensive past medical history of POTS syndrome, temperature regulating disorder, ITP, lupus, Sjogren's, Javid-Danlos syndrome, [place] ES, gastroparesis, long-haul COVID with autoimmune gastric dysmotility, PCOS, basal cell carcinoma with history of splenectomy, GJ tube and multiple ports. Patient is never a smoker denies any drinking or illicit drug use and also has history of anxiety/depression/PTSD. On admission labs this morning labs revealed a white count of 30.67, hemoglobin 14.8, platelets 518, sodium 138, potassium 3.9, BUN 11, creatinine 0.54, random glucose was 206, calcium elevated at 10.5, total bili is 1.2, AST 43, ALT 61, amylase 125, lipase 616. Patient did undergo CT abdomen pelvis which revealed prominent liquid stool in the right side of the colon as well as fluid-filled small bowel loops in the left side of the abdomen and the ileum to consider a nonspecific enteritis or enterocolitis, PEG tube was noted as well as J-tube, 8 mm gallstone, also noted to have an IUD present and there is some soft tissue fullness in the region of the cervix that may be physiologic to correlate with findings of a routine Pap smear. Patient reports she receives lactated Ringer's 3 times weekly to prevent dehydration along with electrolytes. Patient also is on specific tube feeds which most recently over the last few days she has not been tolerating very well and not been having her tube feeds. Patient is currently on Vivinex and will be bringing in her tube feed supplies as we do not carry these. Will consult dietitian. Will also obtain a gallbladder ultrasound with concerns of that gallstone. Will obtain blood cultures and also place the patient on empiric antibiotics given the white count was 30,000 and placed a consult to general surgery. 09/22/2024 Patient is seen and evaluated in follow-up today continuing to report significant amount of abdominal pain and significant tenderness in the pancreatic and right upper quadrant area. Patient has been evaluated by general surgery and has undergone gallbladder ultrasound recommending possible HIDA scan and this was ordered for this a.m. Lipase and amylase significantly improved as well as white count and has normalized. Patient is having low-grade temps of 100 overnight. Patient reports to continuously feeling nauseated as well and will continue supportive care. Recommend continued n.p.o. for now and will be bringing in tube feeding supplies as well as electrolytes. Will transition to lactated Ringer's for continued hydration. 09/23/2024 Patient is seen in follow-up today currently remains n.p.o. and tube feedings are on hold as patient is scheduled to undergo cholecystectomy with general surgery today. Patient is continued on lactated Ringer's at 125 an hour and will continue. Patient is concerned with her hydration intake and feels she is not significantly improved from admission. Patient will resume tube feeds once cleared by surgery. Patient is afebrile and white count is normal and continues to report her urinary output has been decreased and continues to feel dehydrated. Will increase hydration and await surgical report. Labs reviewed and white count is normal at 8.63, hemoglobin is stable at 11.1, sodium mildly low at 135, potassium 3.7, BUN is 6 with a creatinine of 0.45, calcium mildly low although slightly improved from previous at 8.2. Recommend follow-up labs in the a.m. and will await surgical report. Review of systems: Constitutional: No reports of fatigue, no further reports of fever, or chills Cardiovascular: No reports of chest pain or palpitations Respiratory: No reports of shortness of breath or cough GI: reports of intermittent nausea, reports of no further vomiting, reports continued abdominal discomfort : No reports of dysuria or retention, reports decreased urinary output Neurovascular: No reports of weakness or numbness All medications have been reviewed PHYSICAL EXAMINATION: GENERAL: The patient is alert and oriented x3, in acute distress due to ongoing pain of the abdomen. Well developed, well nourished. HEENT: Pupils are round and equally reacting to light. EOMI. No scleral icterus. No conjunctival pallor. Normocephalic, atraumatic. No pharyngeal erythema. No thyromegaly. CARDIOVASCULAR: S1 and S2 muffled, tachycardic PULMONARY: Chest is clear to auscultation, no wheezing or crackles. ABDOMEN: Soft, tenderness noted of left and right along with mid epigastric, nondistended, normoactive bowel sounds. No palpable organomegaly. MUSCULOSKELETAL: No joint swelling or deformity. EXTREMITIES: No cyanosis, clubbing, or pedal edema. NEUROLOGICAL: Gross neurological examination did not reveal any focal deficits. SKIN: No rashes. Assessment: Abdominal pain with nausea, vomiting, diarrhea with concerns of enteritis or enterocolitis Leukocytosis, likely reactive secondary to acute pancreatitis, normalized Elevated amylase/lipase with concerns of acute pancreatitis, improving Mild transaminitis Thrombocythemia History of Sjogren's disease History of POTS ITP history Lupus History of Sjogren's Javid-Danlos syndrome History of PRES History of gastroparesis and follows with [facility] motility specialist Dr. Kaylie DE LA FUENTE history Autoimmune gastric dysmotility PCOS Basal cell carcinoma history History of anxiety, depression, PTSD History of temperature regulating disorder GI prophylaxis DVT prophylaxis Full code Plan: Patient was admitted with concerns of nausea, vomiting, diarrhea and significant dehydration. Patient chronically has lactated ringer infusions 3 times weekly and follows at the [facility] as well as [facility] in [place] for significant gastroparesis along with multiple significant other comorbidities CT abdomen as mentioned above and there was concern for an 8 mm gallstone and gallbladder ultrasound obtained noting no acute cholecystitis although recommending HIDA scan. General surgery has evaluated the patient and has ord ered HIDA scan for further evaluation. Patient continues had significant intense abdominal discomfort and HIDA scan was suggestive of biliary dyskinesia and general surgery is planning for cholecystectomy today 09/23/2024. Patient did have an elevated white count and reports to having fevers of which patient reports she also has a temperature regulating abnormality and low-grade temps are fevers for her, white count has normalized today at 9 and patient is afebrile for over 24 hours. Will monitor closely off antibiotic therapy. Patient does follow with the [facility] and [facility] and will attempt to obtain medical records. Attempted to contact motility specialist out of [facility] Dr. Blackburn with no response. Recommend follow-up labs in the a.m. and monitoring electrolytes and kidney functions closely. Diet will be resumed with tube feeds once cleared by general surgery. Awaiting official surgical report at this time The impression and plan of care has been dictated as a scribe by Kaylan Christie, Nurse Practitioner as directed. Dr. Otilio MD I have performed a history and examination and MDM of this patient, discussed the same with the dictator, and agree with the dictator's assessment and plan as written ,documented as a scribe. Based on total visit time, I have performed more than 50% of the visit. Objective - Vital Signs Vital signs: Vital Signs Temp 98.8 F 09/23/24 07:20 Pulse 89 09/23/24 07:20 Resp 16 09/23/24 07:20 BP 142/81 09/23/24 07:20 Pulse Ox 97 09/23/24 07:20 FiO2 Intake & Output 09/22/24 09/23/24 09/23/24 18:59 06:59 18:59 Intake Total 316 Balance 316 Weight 83.915 kg 93 kg Intake: Tube Feeding 316 Other: Voiding Method Toilet Toilet # Voids 2 - Labs CBC & Chem 7: 09/23/24 05:53 09/23/24 05:53 Labs: Abnormal Lab Results - Last 24 Hours (Table) 09/22/24 09/22/24 09/23/24 Range/Units 06:00 15:28 03:39 RBC (4.10-5.20) 10*6/uL Hgb (12.0-15.0) g/dL Hct (37.2-46.3) % Immature Gran # (0.00-0.04) 10*3/uL Eosinophils # (0.04-0.35) 10*3/uL Sodium (137-145) mmol/L BUN (7-17) mg/dL Creatinine (0.52-1.04) mg/dL Glucose (74-99) mg/dL POC Glucose (mg/dL) 146 H (70-110) mg/dL Calcium (8.4-10.2) mg/dL Lipase 13 L (14-63) U/L Urine Appearance Cloudy H (Clear) Urine Ketones 2+ H (Negative) Urine Blood Moderate H (Negative) Urine RBC 46 H (0-5) /hpf Ur Squamous Epith Cells 12 H (0-4) /hpf Urine Bacteria Occasional H (None) /hpf Urine Mucus Rare H (None) /hpf 09/23/24 09/23/24 Range/Units 05:53 05:53 RBC 3.49 L (4.10-5.20) 10*6/uL Hgb 11.1 L D (12.0-15.0) g/dL Hct 32.5 L (37.2-46.3) % Immature Gran # 0.06 H (0.00-0.04) 10*3/uL Eosinophils # 0.02 L (0.04-0.35) 10*3/uL Sodium 135 L (137-145) mmol/L BUN 6 L (7-17) mg/dL Creatinine 0.45 L (0.52-1.04) mg/dL Glucose 106 H (74-99) mg/dL POC Glucose (mg/dL) (70-110) mg/dL Calcium 8.2 L (8.4-10.2) mg/dL Lipase (14-63) U/L Urine Appearance (Clear) Urine Ketones (Negative) Urine Blood (Negative) Urine RBC (0-5) /hpf Ur Squamous Epith Cells (0-4) /hpf Urine Bacteria (None) /hpf Urine Mucus (None) /hpf Microbiology - Last 24 Hours (Table) 09/21/24 14:57 Blood Culture - Preliminary Blood
[2024-09-23] MEDS: HYDROmorphone 1 MG/ML 1 ML SYRINGE IVP PRN (23:20)
[2024-09-24] MEDS ORDERED: HYDROmorphone 0.5 MG/0.5 ML SYRINGE IVP PRN (00:47)
[2024-09-24] MEDS: ONDANSETRON 4 MG/2 ML VIAL IVP ONE (01:29)
[2024-09-24] MEDS: LACTATED RINGERS 1,000 ML IV SCH (01:29)
[2024-09-24] MEDS: DEXAMETHASONE SOD PHOSPHATE 4 MG/ML 1 ML VIAL IV ONE (01:29)
[2024-09-24] MEDS ORDERED: SIMETHICONE 80 MG CHEWABLE PO PRN (04:14)
[2024-09-24 07:45] VITALS: RESP 16
[2024-09-24 10:13] LABS: Basophils # (A) 0.04 X 10*3/uL (0.00-0.10); Basophils % (A) 0.3 %; Eosinophils # (A) 0.02 X 10*3/uL (0.04-0.35); Eosinophils % (A) 0.2 %; HCT 33.2 % (37.2-46.3); HGB 11.3 g/dL (12.0-15.0); Lymphocytes # (A) 2.39 X 10*3/uL (0.90-5.00); Lymphocytes % (A) 19.5 %; MCH 31.9 pg (27.0-32.0); MCV 93.8 FL (80.0-97.0); Mean Platelet Volume 9.5 FL (9.5-12.2); Monocytes % (A) 7.4 %; NRBC Per 100 WBC 0.02 X 10*3/uL (0.00-0.01); Neutrophils # (A) 8.81 X 10*3/uL (1.80-7.70); Neutrophils % (A) 71.9 %; Platelet Count 406 X 10*3/uL (140-440); RBC 3.54 X 10*6/uL (4.10-5.20); RDW 13.4 % (11.5-14.5); WBC 12.24 X 10*3/uL (4.50-10.00)
[2024-09-24 10:33] LABS: Magnesium 1.5 mg/dL (1.5-2.4)
[2024-09-24 10:38] LABS: ALT 80 U/L (8-44); AST 71 U/L (13-35); Albumin 3.7 g/dL (3.8-4.9); Albumin/Globulin Ratio 1.76 Ratio (1.60-3.17); Alkaline Phosphatase 62 U/L (41-126); BUN/Creat Ratio 7.17 Ratio (12.00-20.00); Blood Urea Nitrogen 4.3 mg/dL (9.0-27.0); Carbon Dioxide 25.6 mmol/L (21.6-31.8); Chloride 100 mmol/L (96-109); Globulin 2.1 g/dL (1.6-3.3); Glucose 105 mg/dL (70-110); Potassium 3.7 mmol/L (3.5-5.5); Sodium 135 mmol/L (135-145); Total Bilirubin 0.8 mg/dL (0.3-1.2); Total Protein 5.8 g/dL (6.2-8.2)
--- NOTE | 2024-09-24 12:08 | P.PN ---
Subjective Progress Note Date: 09/24/24 I assumed care of this patient today. 49 year old F with extensive PMH of Javid-Danlos, Lupus, Sjogrens, POTS, Gastroparesis with G-J tube, PCOS, basal cell CA, Anxiety/Depression/PTSD initially presented to the ED for abdominal pain, nausea and vomiting. In the ED she underwent extensive evaluation. BP 129/98, HR 88, T 98.6F, RR 18, 99% on RA. CBC, CMP significant for WBC 30.67, bicarb 17, glu 206, Ca 10.5, AST 43, ALT 61, total protein 8.3. Amylase and Lipase 125 and 616 respectively. UA mod blood, 2+ ketones, neg LE and nitrite. CTAP concerning for fluid-filled small bowel loops, 8 mm gallstone. Patient was admitted for concerns of pancreatitis, enteritis/enterocolitis. She received IV hydration. GB US showed hepatomegaly 17.6 cm, no gallstone or biliary duct dilation. Surgery consulted, underwent HIDA scan showing no acute cholecystitis but abnormal GB EF of 1% may be seen with chronic cholecystisis or biliary dyskinesia. She underwent lap cholecystectomy with Dr. Jernigan on 09/23. 09/24 Patient was seen and examined. She reports pain at the site of surgery. Initial pain on admission has resolved. No nausea or vomiting. Plans to re-start tube feeds. CBC and CMP significant for WBC 12.24, RBC 3.54, Hg 11.3, Hct 33.2, BUN 4.3, Ca 8, AST 71, ALT 80, alb 3.7. General: non toxic, no distress, appears at stated age Derm: warm, dry Head: atraumatic, normocephalic, symmetric Mouth: no lip lesion, mucus membranes moist Cardiovascular: S1 S2 reg. No murmur. Abd: Laparoscopic scars c/d/i. Sluggish BS. Lungs: Decreased BS bilaterally, no accessory muscle use Ext: no gross muscle atrophy, no edema, no contractures Neuro: No focal neurologic deficits. Psych: Alert and oriented. Based on my assessment of this patient, this patient meets a high complexity level of care. Chronic cholecystitis and possible biliary dyskinesia: Status post lap cholecystectomy with Dr. Jernigan on 09/23. Started on Levaquin 500 mg IV QD today by Surgery. Tylenol 650 mg PO Q6H PRN fever. Dilaudid 0.5-1 mg IV Q3H PRN pain scale. LR at 100 cc/hr. Zofran 4 mg IV Q6H PRN N/V. Compazine 5 mg IV Q4H PRN N/V. Phenagran 12.5 mg PO TID PRN N/V. Normocytic anemia: Likely dilutional along with acute blood loss from surgery. Monitor. Transfuse if Hg < 7. Transaminitis: Hepatic steatosis on imaging. POTS: Propranolol 10 mg PO QHS. Midodrine 5 mg PO TID PRN SBP < 100. Florinef 0.1 mg PO QD. Chronic conditions: Javid-Danlos, Lupus, Sjogrens, Gastroparesis with G-J tube, PCOS, basal cell CA, Anxiety/Depression/PTSD for which she follows up with [facility]. CODE STATUS: FULL CODE DVT Prophylaxis: Lovenox SQ GI Prophylaxis: Pepcid Designated medical POA if patient is not able to make medical decisions for themselves: . I have reviewed the following farm service consultant notes: Surgery. I have reviewed the results of the following tests: CBC, CMP. I have ordered the following tests: I have discussed the care of this patient with the following independent historian: PARUL. I have independently interpreted the following test below: I have discussed the management of this patient with the following physician: Objective - Vital Signs Vital signs: Vital Signs Temp 98.6 F 09/24/24 07:20 Pulse 86 09/24/24 07:20 Resp 16 09/24/24 07:20 BP 127/81 09/24/24 07:20 Pulse Ox 97 09/24/24 07:20 FiO2 Intake & Output 09/23/24 09/24/24 09/24/24 18:59 06:59 18:59 Intake Total 400 200 Output Total 20 Balance 400 180 Weight 94.5 kg Intake: IV 400 200 Output: Estimated Blood Loss 20 Other: Voiding Method Toilet # Voids 2 - Labs CBC & Chem 7: 09/24/24 05:35 09/24/24 05:35 Labs: Abnormal Lab Results - Last 24 Hours (Table) 09/24/24 09/24/24 Range/Units 05:35 05:35 WBC 12.24 H (4.50-10.00) X 10*3/uL RBC 3.54 L (4.10-5.20) X 10*6/uL Hgb 11.3 L (12.0-15.0) g/dL Hct 33.2 L (37.2-46.3) % Immature Gran # 0.08 H (0.00-0.04) X 10*3/uL Neutrophils # 8.81 H (1.80-7.70) X 10*3/uL Eosinophils # 0.02 L (0.04-0.35) X 10*3/uL NRBC/100 WBC Diff 0.02 H (0.00-0.01) X 10*3/uL BUN 4.3 L (9.0-27.0) mg/dL BUN/Creatinine Ratio 7.17 L (12.00-20.00) Ratio Calcium 8.0 L (8.7-10.3) mg/dL AST 71 H (13-35) U/L ALT 80 H (8-44) U/L Total Protein 5.8 L (6.2-8.2) g/dL Albumin 3.7 L (3.8-4.9) g/dL Microbiology - Last 24 Hours (Table) 09/21/24 14:57 Blood Culture - Preliminary Blood
[2024-09-24] MEDS: LEVOFLOXACIN 500MG-D5W PMX 500 MG in DEXTROSE/WATER 1 100ML.BAG IVPB STA (12:31)
--- NOTE | 2024-09-24 14:11 | P.PN ---
Subjective Progress Note Date: 09/24/24 SURGICAL PROGRESS NOTE CHIEF COMPLAINT: Chronic cholecystitis HISTORY OF PRESENT ILLNESS: Patient is postop day #1 status post laparoscopic cholecystectomy. Patient does report abdominal pain at incision sites. Pain that brought her in has improved. She has been up and ambulating. Afebrile. WBC is elevated at 12.24 Hgb 11.3 platelets 406. Minimal elevation of LFTs AST 71 ALT 80 alk phos 62 and total bilirubin 0.5 Discussed with nursing staff. Patient is tolerating tube feeds. Pain is contro lled. She is having flatus. PHYSICAL EXAM: VITAL SIGNS: Reviewed. GENERAL: Well-developed in no acute distress. ABDOMEN: Soft. Nondistended. Incision sites clean dry and intact NEUROLOGIC: Alert and oriented. Cranial nerves II through XII grossly intact. ASSESSMENT: 1. Chronic cholecystitis status post laparoscopic cholecystectomy PLAN: -Continue tube feeds -Patient will be discharged with 3 days of antibiotics -Patient is cleared for discharge from surgical standpoint. She is tolerating diet. And her pain is controlled. -Patient to follow-up in office in [address] Jernigan Physician Bowling Ball Patcher note has been reviewed by physician. Signing provider agrees with the documented findings, assessment, and plan of care. Objective - Vital Signs Vital signs: Vital Signs Temp 98.6 F 09/24/24 07:20 Pulse 86 09/24/24 07:20 Resp 16 09/24/24 07:20 BP 127/81 09/24/24 07:20 Pulse Ox 97 09/24/24 07:20 FiO2 Intake & Output 09/23/24 09/24/24 09/24/24 18:59 06:59 18:59 Intake Total 400 200 Output Total 20 Balance 400 180 Weight 94.5 kg Intake: IV 400 200 Output: Estimated Blood Loss 20 Other: Voiding Method Toilet # Voids 2 - Labs CBC & Chem 7: 09/24/24 05:35 09/24/24 05:35 Labs: Abnormal Lab Results - Last 24 Hours (Table) 09/24/24 09/24/24 Range/Units 05:35 05:35 WBC 12.24 H (4.50-10.00) X 10*3/uL RBC 3.54 L (4.10-5.20) X 10*6/uL Hgb 11.3 L (12.0-15.0) g/dL Hct 33.2 L (37.2-46.3) % Immature Gran # 0.08 H (0.00-0.04) X 10*3/uL Neutrophils # 8.81 H (1.80-7.70) X 10*3/uL Eosinophils # 0.02 L (0.04-0.35) X 10*3/uL NRBC/100 WBC Diff 0.02 H (0.00-0.01) X 10*3/uL BUN 4.3 L (9.0-27.0) mg/dL BUN/Creatinine Ratio 7.17 L (12.00-20.00) Ratio Calcium 8.0 L (8.7-10.3) mg/dL AST 71 H (13-35) U/L ALT 80 H (8-44) U/L Total Protein 5.8 L (6.2-8.2) g/dL Albumin 3.7 L (3.8-4.9) g/dL Microbiology - Last 24 Hours (Table) 09/21/24 14:57 Blood Culture - Preliminary Blood
--- NOTE | 2024-09-24 14:12 | P.DS ---
Providers Date of admission: 09/21/24 08:41 Expected date of discharge: 09/24/24 Attending physician: Albino Covarrubias Consults: 09/21/24 15:31 Consult Physician Urgent Consulting Provider: Vipin Jernigan Consult Reason/Comments: abd pain, gastroenteritis, gallstones, sign hx of gastroparesis Do you want consulting provider notified?: Yes Primary care physician: Physician Nonstaff Hospital Course: 49 year old F with extensive PMH of Javid-Danlos, Lupus, Sjogrens, POTS, Gastroparesis with G-J tube, PCOS, basal cell CA, Anxiety/Depression/PTSD initially presented to the ED for abdominal pain, nausea and vomiting. In the ED she underwent extensive evaluation. BP 129/98, HR 88, T 98.6F, RR 18, 99% on RA. CBC, CMP significant for WBC 30.67, bicarb 17, glu 206, Ca 10.5, AST 43, ALT 61, total protein 8.3. Amylase and Lipase 125 and 616 respectively. UA mod blood, 2+ ketones, neg LE and nitrite. CTAP concerning for fluid-filled small bowel loops, 8 mm gallstone. Patient was admitted for concerns of pancreatitis, enteritis/enterocolitis. She received IV hydration. GB US showed hepatomegaly 17.6 cm, no gallstone or biliary duct dilation. Surgery consulted, underwent HIDA scan showing no acute cholecystitis but abnormal GB EF of 1% may be seen with chronic cholecystisis or biliary dyskinesia. She underwent lap cholecystectomy with Dr. Jernigan on 09/23. 09/24 Patient was seen and examined. She reports pain at the site of surgery. Initial pain on admission has resolved. No nausea or vomiting. Plans to re-start tube feeds. CBC and CMP significant for WBC 12.24, RBC 3.54, Hg 11.3, Hct 33.2, BUN 4.3, Ca 8, AST 71, ALT 80, alb 3.7. Tolerating tube feeds. Discussed with Nuha TUBE SIZER AND CUTTER OPERATOR, cleared for discharge on 3 days of Levaquin. Discharge Plan: Levaquin x 3 days. Follow up with PCP within 1-[address] Jernigan within 1 week of discharge. General: non toxic, no distress, appears at stated age Derm: warm, dry Head: atraumatic, normocephalic, symmetric Mouth: no lip lesion, mucus membranes moist Cardiovascular: S1 S2 reg. No murmur. Abd: Laparoscopic scars c/d/i. Sluggish BS. Lungs: Decreased BS bilaterally, no accessory muscle use Ext: no gross muscle atrophy, no edema, no contractures Neuro: No focal neurologic deficits. Psych: Alert and oriented. Discharge Diagnosis: Chronic cholecystitis and possible biliary dyskinesia Normocytic anemia Transaminitis POTS Chronic conditions: Javid-Danlos, Lupus, Sjogrens, Gastroparesis with G-J tube, PCOS, basal cell CA, Anxiety/Depression/PTSD for which she follows up with [facility]. This complex discharge took 35 minutes to complete. Patient Condition at Discharge: Stable Plan - Discharge Summary Discharge Rx Participant: Yes New Discharge Prescriptions: New Acetaminophen Tab [Tylenol] 1,000 mg PO Q6HR PRN #30 tablet PRN Reason: Pain Levofloxacin [Levaquin] 500 mg PO DAILY 3 Days #3 tab Continue Albuterol Sulfate [Albuterol Sulfate Hfa] 2 puff INHALATION RT-Q6H PRN PRN Reason: Shortness Of Breath Aspirin EC [Ecotrin Low Dose] 81 mg PO DAILY Escitalopram Oxalate [Lexapro Soln] 5 mg PO HS Fexofenadine HCl [Little Allergy] 180 mg PO DAILY Prucalopride Succinate [Motegrity] 2 mg PO DAILY Cromolyn Sodium [Cromolyn Sodium 20% Oral Soln] 100 mg PO TID Cyclobenzaprine [Flexeril] 5 mg PO BID PRN PRN Reason: Muscle Spasm Dicyclomine [Bentyl] 10 mg PO TID PRN PRN Reason: Gi Upset Famotidine [Pepcid] 40 mg PO DAILY Fludrocortisone [Florinef] 0.1 mg PO DAILY Lubiprostone [Amitiza] 8 mcg PO DAILY Midodrine [ProAmatine] 5 mg PO TID PRN PRN Reason: SBP <100 Promethazine 6.25MG/5Ml [Phenergan Syrup] 12.5 mg PO TID PRN PRN Reason: Nausea Propranolol [Inderal] 10 mg PO HS Rimegepant Sulfate [Nurtec Odt] 75 mg PO DAILY PRN PRN Reason: Migraine Headache Discharge Medication List Albuterol Sulfate [Albuterol Sulfate Hfa] 2 puff INHALATION RT-Q6H PRN 09/21/24 [History] Aspirin EC [Ecotrin Low Dose] 81 mg PO DAILY 09/21/24 [History] Cromolyn Sodium [Cromolyn Sodium 20% Oral Soln] 100 mg PO TID 09/21/24 [History] Cyclobenzaprine [Flexeril] 5 mg PO BID PRN 09/21/24 [History] Dicyclomine [Bentyl] 10 mg PO TID PRN 09/21/24 [History] Escitalopram Oxalate [Lexapro Soln] 5 mg PO HS 09/21/24 [History] Famotidine [Pepcid] 40 mg PO DAILY 09/21/24 [History] Fexofenadine HCl [Little Allergy] 180 mg PO DAILY 09/21/24 [History] Fludrocortisone [Florinef] 0.1 mg PO DAILY 09/21/24 [History] Lubiprostone [Amitiza] 8 mcg PO DAILY 09/21/24 [History] Midodrine [ProAmatine] 5 mg PO TID PRN 09/21/24 [History] Promethazine 6.25MG/5Ml [Phenergan Syrup] 12.5 mg PO TID PRN 09/21/24 [History] Propranolol [Inderal] 10 mg PO HS 09/21/24 [History] Prucalopride Succinate [Motegrity] 2 mg PO DAILY 09/21/24 [History] Rimegepant Sulfate [Nurtec Odt] 75 mg PO DAILY PRN 09/21/24 [History] Acetaminophen Tab [Tylenol] 1,000 mg PO Q6HR PRN #30 tablet 09/24/24 [Rx] Levofloxacin [Levaquin] 500 mg PO DAILY 3 Days #3 tab 09/24/24 [Rx] Follow up Appointment(s)/Referral(s): Nonstaff,Physician [Primary Care Provider] - 1-2 days Vipin Jernigan MD [STAFF PHYSICIAN] - 10 Days Activity/Diet/Wound Care/Special Instructions: Resume tube feeds Discharge/Stand Alone Forms: Who Do I Call?, Community Resources, Help In The Home, Personal Payloader Machine Operator Discharge Disposition: HOME SELF-CARE
[2024-09-24 14:24] VITALS: BMI 30.7
[2024-09-24 14:25] VITALS: BP 135/86; PULSE 92; TEMP 98.7
[2024-09-25] MEDS ORDERED: ENOXAPARIN 40 MG/0.4 ML SYRINGE SQ SCH (09:00)
== END 2024-09-24 17:33 | disposition home or self-care (01) | DRG 417 ==
LOC: EC 03:30 → 1SOBS 08:41 → 6NMEDSUR 18:24
PROVIDERS: ADMIT Student in an Organized Health Care Education/Training Program; ATTEND Student in an Organized Health Care Education/Training Program
PROC: 0FT44ZZ Resection of Gallbladder, Percutaneous Endoscopic Approach (ICD-10-PCS; principal; 2024-09-23 11:15)
DX: K81.1 Chronic cholecystitis (principal); I67.83 Posterior reversible encephalopathy syndrome; K85.90 Acute pancreatitis without necrosis or infection, unspecified; D69.3 Immune thrombocytopenic purpura; D62 Acute posthemorrhagic anemia; R16.0 Hepatomegaly, not elsewhere classified; M35.00 Sjogren syndrome, unspecified; F32.A Depression, unspecified; K76.0 Fatty (change of) liver, not elsewhere classified; Q79.60 Ehlers-Danlos syndrome, unspecified; Z93.4 Other artificial openings of gastrointestinal tract status; M32.9 Systemic lupus erythematosus, unspecified; Z93.1 Gastrostomy status; G90.A Postural orthostatic tachycardia syndrome [POTS]; E86.0 Dehydration; K82.8 Other specified diseases of gallbladder; K31.84 Gastroparesis; E28.2 Polycystic ovarian syndrome; F41.9 Anxiety disorder, unspecified; K52.9 Noninfective gastroenteritis and colitis, unspecified; H54.7 Unspecified visual loss; F43.10 Post-traumatic stress disorder, unspecified; D75.839 Thrombocytosis, unspecified; U09.9 Post COVID-19 condition, unspecified; K59.89 Other specified functional intestinal disorders; Z79.52 Long term (current) use of systemic steroids; Z90.81 Acquired absence of spleen; Z97.5 Presence of (intrauterine) contraceptive device; Z79.82 Long term (current) use of aspirin; Z79.899 Other long term (current) drug therapy; Z88.0 Allergy status to penicillin; Z85.828 Personal history of other malignant neoplasm of skin
CPT/HCPCS: 36410; 36415; 74177; 76705; 76937; 78227; 80048; 80053; 81001; 81025; 82150; 83690; 83735; 85025; 87040; 88304; 96361; 96374; 96375; 96376; 99285